=== PATIENT | male | born 1955 | race Caucasian/White ===

== ENCOUNTER → 2021-01-11 12:47 | Outpatient (CLI) | payer OTHER, SELFPAY ==
--- NOTE | 2021-01-11 12:53 | CT_ITS ---
STUDY: CT ABDOMEN AND PELVIS WITHOUT CONTRAST REASON FOR EXAM: Male, 65 years old. PROSTATE CA, METS TO BONE RADIATION PLANNING RADIATION DOSAGE (If Supplied By Facility): CTDIvol = ( 22.35 ) mGy, DLP = ( 2201.01 ) mGycm TECHNIQUE: Transaxial images were obtained from the dome of the diaphragm to the symphysis pubis without oral contrast, and without intravenous contrast. Individualized dose optimization techniques were used for this CT. COMPARISON: None. FINDINGS: Small bilateral pleural effusions. Increased markings with areas of confluence at the lung bases. The visualized portions of the heart are within normal limits. Multiple liver hypodense nodules are seen throughout the liver. These most likely represent cysts. Correlation with ultrasound is recommended. There are multiple small gallstones. Normal spleen. Normal pancreas. Normal bilateral adrenal glands. There is a 3 mm nonobstructive calculus in the lower pole calyx of the right kidney. 1 cm cyst in the upper pole of the left kidney. Normal visualized stomach. Normal small intestine. There are multiple colonic diverticula consistent with diverticulosis. The appendix is visualized and appears normal. There is diffuse atherosclerotic calcification of the abdominal aorta, without a demonstrated aneurysm. Normal inferior vena cava. Normal retroperitoneum. Diffusely thickened urinary bladder wall. Small capacity urinary bladder. There are 3 small calculi at the base of the bladder on the right side. The largest calculus measures 3.7 mm. There is enlargement of the prostate gland. The prostate measures 4.5 cm x 3.9 cm. This causes indentation at the bladder base. Central prostatic calcification. Small bilateral inguinal hernias containing fat . 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 CT/Abdomen/Pelvis without Cont IMPRESSION: Multiple hypodensities in the liver suggestive of multiple cysts. Correlation with ultrasound is recommended. Small gallstones. Diffuse bony metastasis. Prostatic enlargement with indentation of the bladder base. Diffusely thickened urinary bladder wall. 3 calculi are seen at the base of the bladder on the right. Bilateral nonobstructive intrarenal calculi. Electronically Signed: Roney No MD at 14:02 EDT , Service support ,
== END ==
PROVIDERS: PCP Family Medicine; Referring Provider Radiology Radiation Oncology; Visit Provider Radiology Radiation Oncology
DX: C61 Malignant neoplasm of prostate (principal); C79.51 Secondary malignant neoplasm of bone
CPT/HCPCS: 74176